=== PATIENT | male | born 1945 | race Caucasian/White ===

== ENCOUNTER 2022-03-15 09:08 | Day surgery (SDC) | payer MEDICARE, BC ==
[~2022-03-15 09:08] MED LIST: DEXAMETHASONE SOD PHOSPHATE 4 MG/ML 1 ML VIAL IV ONE; DEXAMETHASONE SOD PHOSPHATE 4 MG/ML 1 ML VIAL IV PRN; FAMOTIDINE 20 MG/2 ML VIAL IV PRN; LACTATED RINGERS 1,000 ML IV SCH; LIDOCAINE 1% (10MG/ML) FOR IV START INTRADERMA ONE; ONDANSETRON 4 MG/2 ML VIAL IVP ONE; ONDANSETRON 4 MG/2 ML VIAL IVP PRN; fentaNYL (PF) 50 MCG/ML 2 ML AMP IV PRN; metroNIDAZOLE-NS PMX 500 MG in SALINE 1 100ML.BAG IVPB PRN
[2022-03-15 09:39] VITALS: TEMP 97.8
[2022-03-15] MEDS ORDERED: fentaNYL (PF) 50 MCG/ML 2 ML AMP ONE (10:55)
[2022-03-15] MEDS ORDERED: MIDAZOLAM 2 MG/2 ML VIAL ONE (10:55)
[2022-03-15] MEDS ORDERED: KETAMINE 10 MG/ML 20 ML VIAL ONE (10:55)
[2022-03-15] MEDS ORDERED: diphenhydrAMINE 50 MG/ML 1 ML VIAL ONE (10:55)
[2022-03-15] MEDS ORDERED: PROPOFOL 10 MG/ML 20 ML VIAL IV ONE (10:55)
[2022-03-15] MEDS ORDERED: LIDOCAINE 2% INJ 20 MG/ML (2 ML VIAL) ONE (10:55)
[2022-03-15] MEDS ORDERED: BUPIVACAIN-EPI 0.25%-1:200,000 30 ML VIAL SQ ONE (11:56)
[2022-03-15] MEDS ORDERED: LIDOCAINE 1%-EPI 1:100,000 20 ML VIAL SQ ONE (11:56)
--- NOTE | 2022-03-15 12:33 | P.OP ---
Date of Procedure: 03/15/22 Preoperative Diagnosis: 6x 3cm right scalp basal cell carcinoma 4x 2cm left scalp lesion Postoperative Diagnosis: same Procedure(s) Performed: Excision of a 6 x 3 cm right scalp basal cell carcinoma with reconstruction utilizing a bilateral advancement flap closure with a secondary defect of 12 x 6 cm. Excision of a 4 x 2 cm left scalp lesion with reconstruction utilizing a bilateral advancement flap closure with a secondary defect of 8 x 4 cm Anesthesia: MAC Surgeon: Danie Juarez Estimated Blood Loss (ml): 5 Pathology: other (frozen section showed clear margins) Indications for Procedure: Patient had 2 lesions of the scalp morning on the right 1 on the left. 1 on the right came back as a basal cell carcinoma and one on the left there is suspicious. Surgical removal is recommended. All risks, benefits, and alternative therapies were discussed. Consent was obtained and all questions were answered Operative Findings: All margins are negative for tumor on pathology Description of Procedure: Patient was taken to the operative room to the supine position IV sedation was administered and the scalp was sterilely prepped and draped in usual fashion. Lesion on the right and lesion on the left were identified and marked measurements were 6 x 3 cm on the right and 4 x 2 cm on the left. The scalp was anesthetized with lidocaine and epinephrine and 10 minutes were allowed wait for full vasoconstrictive effects to take place at this time incisions were made in these 2 lesions were removed. On the right side we did extensive undermining but could not bring this together primarily therefore bilateral advancement flaps were developed with removal of burrows triangles we did extensive undermining in all directions and we rotated the medial and pedicle flaps into position to close the defect we closed the deep galea layer with 3-0 PDS the mid dermal layer with 4-0 Monocryl and the skin with a 4 and 50 rapid Vicryl in a running nonlocking fashion excellent approximation was obtained. The secondary defect measured 12 x 8 cm. The left scalp lesion also was unable to be closed primarily so we developed bilateral advancement flaps we removed carolynn's triangles did extensive undermining in all directions and we rotated the skin flaps into position to close the defect we closed the deep 3-0 PDS 4-0 Monocryl and the skin was closed with a 50 rapid Vicryl in a running nonlocking fashion excellent approximation was obtained the patient tolerated this well and follow- up will be in the office in one week the secondary defect was performed on the left lesion measured 8 x 4 cm.
[2022-03-15 12:39] VITALS: RESP 16
[2022-03-15 12:59] VITALS: BP 123/70; PULSE 65
== END 2022-03-15 13:22 | disposition home or self-care (01) ==
LOC: OR 09:08
PROVIDERS: ATTEND Otolaryngology
DX: C44.41 Basal cell carcinoma of skin of scalp and neck (principal); L57.0 Actinic keratosis; L81.4 Other melanin hyperpigmentation
CPT/HCPCS: 14301; 14302; 14021; 88305; 88331; J2250; J1200; J1100; J0690; J2405; J3010; J2704; J2001

== ENCOUNTER → 2022-10-09 | Outpatient (CLI) | payer MEDICARE, BC ==
--- NOTE | 2022-10-09 11:42 | CA ---
Stress Echo Report Aj Webster Age: 77 Gender: M : 1945 Exam Date: 10/09/2022 09:29 Exam Location: [facility] Ht (in): 76 Wt (lb): 235 Ordering Physician: Bk Noe DO Referring Physician: Ramón Sheppard MD ([id number]) Registered Nurse Bone Marrow Transplant: BATSHEVA, Technologist Procedure CPT: Indication: R06.9 OTHER FORMS OF DYSPNEA ICD-9 Codes: Rhythm: Patient History: Shortness of breath Cardiac Medications: Medications in past 24 hours: Contrast: Stress Results Protocol: Stewart Total dose(mL): Exercise Duration (min:sec): Max ST Depression (mm): Angina Score: Clay Score: METS: 8.5 Resting HR: 73 Resting BP: 141 / 86 Peak HR: 133 Peak BP: 203 / 76 Max Predicted HR: 144 92 % Max Predicted HR Target HR: 122 Double Product: 71986 Stress Summary: BP Response: Reason for Termination: Reached target heart rate or work-load Cardiac Symptoms: Dyspnea ECG Analysis Resting ECG: Normal sinus rhythm with left axis deviation Stress ECG: Patient exercised on Stewart protocol for 7 minutes achieving 8 mets 85% of predicted maximal heart rate without chest pain or diagnostic ST segment depression Arrhythmia: Echo Analysis Resting Echo: Normal left ventricular size wall motion systolic function Peak Echo Analysis: Normal hyperdynamic response of all the segments of myocardium noted MEASUREMENTS (Male/Female) Normal Values CONCLUSIONS Average exercise tolerance Negative stress test by EKG criteria Negative stress echo Dr. Napoleon Pinto MD (Electronically Signed) Final Date: 09 October 2022 11:41
== END | disposition home or self-care (01) ==
LOC: RADNMMAIN 09:01
PROVIDERS: ATTEND Family Medicine
DX: R06.09 Other forms of dyspnea (principal)
CPT/HCPCS: 93351

== ENCOUNTER → 2023-01-24 | Outpatient (CLI) | payer MEDICARE, BC ==
[2023-01-24 20:32] LABS: Blood Urea Nitrogen 14.3 mg/dL (9.0-27.0); Carbon Dioxide 25.9 mmol/L (21.6-31.8); Chloride 94 mmol/L (96-109); Potassium 5.6 mmol/L (3.5-5.5); Sodium 131 mmol/L (135-145)
[2023-01-25 00:58] LABS: HGB 14.9 d/dL (13.0-17.0); MCHC 33.9 d/dL (32.0-37.0); MCV 97.3 FL (80.0-97.0); NRBC Per 100 WBC 0 X 10*3/uL (0.00-0.01); Platelet Count 241 X 10*3/uL (140-440); RBC 4.52 X 10*6/uL (4.40-5.60); RDW 12.2 % (11.5-14.5); WBC 5.72 X 10*3/uL (4.50-10.00)
== END | disposition home or self-care (01) ==
LOC: LABPAT 11:53
PROVIDERS: ATTEND Internal Medicine Clinical Cardiac Electrophysiology
DX: Z01.812 Encounter for preprocedural laboratory examination (principal); I48.11 Longstanding persistent atrial fibrillation
CPT/HCPCS: 36415; 80051; 82565; 84520; 85027

== ENCOUNTER 2023-01-29 05:50 | Day surgery (SDC) | payer MEDICARE, BC ==
[2023-01-29] MEDS ORDERED: SODIUM CHLORIDE 0.9% 1,000 ML IV ONE (06:14)
[2023-01-29 07:01] LABS: African American GFR (CKD) >90 (>60 ml/min/1.73 sqM); Anion Gap 10 mmol/L; Blood Urea Nitrogen 15 mg/dL (9-20); Calcium 9.1 mg/dL (8.4-10.2); Carbon Dioxide 24 mmol/L (22-30); Chloride 96 mmol/L (98-107); Glucose 117 mg/dL (74-99); Non-African American GFR(CKD) 84 (>60 ml/min/1.73 sqM); Potassium 4.5 mmol/L (3.5-5.1); Sodium 130 mmol/L (137-145)
[2023-01-29] MEDS ORDERED: LIDOCAINE 1% INJ 10MG/ML (20 ML MDV) ONE (07:17)
[2023-01-29] MEDS ORDERED: ISOPROTERENOL 250 MCG/1.25 ML SYR IV ONE (07:30)
[2023-01-29] MEDS ORDERED: fentaNYL (PF) 50 MCG/ML 2 ML AMP ONE (07:30)
[2023-01-29] MEDS ORDERED: HYDROmorphone (PF) 1 MG/ML ONE (07:30)
[2023-01-29] MEDS ORDERED: MIDAZOLAM 2 MG/2 ML VIAL ONE (07:30)
[2023-01-29] MEDS ORDERED: HEPARIN SODIUM,PORCINE 10,000 UNIT/ML 1 ML VIAL ONE (07:30)
[2023-01-29] MEDS ORDERED: PHENYLEPHRINE 10 MG/ML 5 ML VIAL ONE (07:30)
[2023-01-29] MEDS ORDERED: SUCCINYLCHOLINE CHLORIDE 200 MG/10 ML VIAL IV ONE (07:30)
[2023-01-29] MEDS ORDERED: HEPARIN SODIUM,PORCINE 5,000 UNIT/ML 1 ML VIAL ONE (07:30)
[2023-01-29] MEDS ORDERED: PROPOFOL 10 MG/ML 20 ML VIAL IV ONE (07:30)
[2023-01-29] MEDS ORDERED: LIDOCAINE 1% INJ 10MG/ML (20 ML MDV) SQ ONE (08:12)
[2023-01-29] MEDS ORDERED: HEPARIN SOD,PORK IN 0.45% NACL 25,000 UNIT in 0.45% NACL 1 250ML.BAG IV ONE (08:15)
[2023-01-29] MEDS ORDERED: HEPARIN SODIUM (1,000 UNIT/ML) 1,000 UNIT in SODIUM CHLORIDE 0.9% 1,000 ML IRRIGATION ONE (09:45)
[2023-01-29] MEDS ORDERED: LACTATED RINGERS 1,000 ML IV ONE (10:00)
[2023-01-29] MEDS ORDERED: IOPAMIDOL-370 100ML BTL INJ ONE (10:12)
[2023-01-29] MEDS ORDERED: ACETAMINOPHEN TAB 325 MG TAB PO PRN (11:13)
[2023-01-29] MEDS ORDERED: ACETAMINOPHEN IV (For NPO) 1,000 MG in EMPTY BAG 1 BAG IVPB ONE (11:13)
--- NOTE | 2023-01-29 11:20 | P.HPCAR ---
History of Present Illness This is Dr. Sheppard dictating an H/P on this patient The patient was interviewed and examined IMPRESSION / ASSESSMENT: Recurrent palpitations, exertional Associated dizziness and shortness of breath Hypertension Dyslipidemia Documented paroxysmal atrial fibrillation Failed flecainide and metoprolol Documented SVT, failed metoprolol PLAN: Diagnostic EP study, ablation of arrhythmias HPI Patient continues to have occasional spells of palpitations Most of the symptoms are associated with palpitation shortness of breath and d izziness No recent loss of consciousness ROS: No fever chills or rigors, no cough, phlegm or expectoration, no nausea, vomiting or diarrhea, no hematuria, dysuria, no musculoskeletal complaints, no strokes or seizures, no skin lesions. EXAMINATION: Elevated blood pressure this morning 166 or 87 mmHg pulse rate in the 60s afebrile Breath sounds are clear no rhonchi no crackles Heart sounds are normal no murmurs Breath sounds are clear No lower extremity edema REVIEW OF LABS, ECG & MEDICAL DATA Sodium 130, potassium 4.5 BUN 15 creatinine 0.86 TSH 3.0 Physical Exam Vitals: Vital Signs Temp Pulse Resp BP Pulse Ox 01/29/23 06:18 98.2 F 65 16 166/87 98 Intake and Output 01/28/23 01/29/23 01/29/23 22:59 06:59 14:59 Intake Total 1488 Balance 1488 Intake: IV 1488 Other: Weight 104.7 kg Past Medical History Past Medical History: Cancer, Hyperlipidemia, Hypertension Additional Past Medical History / Comment(s): skin CA, "my heart just goes crazy then I have shortness of breath", see dr Sheppard's H & P History of Any Multi-Drug Resistant Organisms: None Reported Past Surgical History: Hernia Repair, Orthopedic Surgery Additional Past Surgical History / Comment(s): skin cancer surgeries, rt knee replacement, Past Anesthesia/Blood Transfusion Reactions: No Reported Reaction Smoking Status: Former smoker - Past Family History Father Family Medical History: Cancer Physical Examination Vital Signs Temp Pulse Resp BP Pulse Ox 01/29/23 06:18 98.2 F 65 16 166/87 98 Intake and Output 01/28/23 01/29/23 01/29/23 22:59 06:59 14:59 Intake Total 1488 Balance 1488 Intake: IV 1488 Other: Weight 104.7 kg Results 01/29/23 06:30 Comprehensive Metabolic Panel 01/29/23 Range/Units 06:30 Sodium 130 L (137-145) mmol/L Potassium 4.5 (3.5-5.1) mmol/L Chloride 96 L (98-107) mmol/L Carbon Dioxide 24 (22-30) mmol/L BUN 15 (9-20) mg/dL Creatinine 0.86 (0.66-1.25) mg/dL Glucose 117 H (74-99) mg/dL Calcium 9.1 (8.4-10.2) mg/dL Current Medications Generic Name Dose Route Start Last Admin Trade Name Freq PRN Reason Stop Dose Admin Acetaminophen 650 mg 01/29/23 11:13 Acetaminophen Tab 325 Mg Tab PO Q6HR PRN Mild Pain (Scale 1 to 3) Apixaban 5 mg 01/29/23 21:00 Apixaban 5 Mg Tab PO BID CALEB Protocol Flecainide Acetate 50 mg 01/29/23 21:00 Flecainide 50 Mg Tab PO Q12HR CALEB Sodium Chloride 1,000 mls @ 50 mls/hr 01/29/23 05:59 Saline 0.9% IV 02/28/23 06:00 .Q20H CALEB Acetaminophen 1,000 mg/ IV 100 mls @ 400 mls/hr 01/29/23 11:13 Solution IVPB 01/29/23 11:27 ONCE ONE Lisinopril 10 mg 01/29/23 21:00 Lisinopril 10 Mg Tab PO BID CALEB Metoprolol Succinate 12.5 mg 01/30/23 09:00 Metoprolol Succinate (Er) 25 Mg Tab.Er.24h PO DAILY [facility] Non-Formulary Medication 40 mg 01/29/23 21:00 Simvastatin PO HS CALEB Sodium Chloride 12 ml 01/29/23 11:13 Sodium Chloride 0.9% Flush 10 Ml Syringe IV Q12HR PRN Line Flush Intake and Output 01/28/23 01/29/23 01/29/23 22:59 06:59 14:59 Intake Total 1488 Balance 1488 Intake: IV 1488 Other: Weight 104.7 kg 01/29/23 06:30
--- NOTE | 2023-01-29 11:30 | P.EPPROC ---
- EP Procedure Note Electrophysiology Procedure Note: PROCEDURE A. fib ablation with PVI SVT ablation/AVNRT, very easily inducible, status post successful ablation DIAGNOSIS Atrial fibrillation, symptomatic, refractory to therapy Recurrent SVT, failed drug therapy RESULT No left atrial appendage mass seen on intracardiac echo Thickened pericardium with exudative material in the base of the left ventricle and posterior to the left atrium Large right-sided pulmonary veins, complex branching anatomy Large, common left-sided pulmonary veins Successful A. 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 Patient brought to the EP lab. General anesthesia given. Heparin administered. A city maintained above 300 seconds Both groins prepped and draped per protocol and venous sheaths placed. Esophagus intubated, circa catheter for temperature monitoring an endoscope for possible esophageal deflection. Phrenic nerve monitoring performed. Esophageal temperature monitoring performed. Esophageal deflection performed if circa catheter overlapping with the balloon or circa temperature less than 27.5C Intracardiac echocardiography performed. Pericardium evaluated. Left atrial appendage evaluated. Left atrium evaluated along with pulmonary veins Transseptal catheterization performed under fluoroscopic guidance and intracardiac echo guidance Cryoablation sheath exchanged, balloon catheter along with achieve catheter placed in the left atrium. Pulmonary veins isolated in the following sequence: Left superior pulmonary vein followed by left inferior pulmonary vein, followed by right inferior pulmonary vein and lastly right superior pulmonary vein. Phrenic nerve stimulation along with capture thresholds within the SVC and right superior pulmonary vein to identify the phrenic nerve proximity to the cryo- balloon. Pulmonary veins isolated and confirmed with entrance and exit block. Phrenic nerve integrity confirmed at the end of the procedure Following this Isuprel was started and atrial pacing was performed from the high right atrium and coronary sinus With straight pacing and with burst stimulation even radha reentrant tachycardia was easily inducible Short septal times, VAV response RV pacing, long PPI During his cloud mapping atrial fibrillation was induced. This was sustained Electrical cardioversion was performed to sinus rhythm to allow for mapping of the slow pathway and perform ablation In sinus rhythm the slow pathway was mapped. Successful ablation was performed outside the floor and the roof of the coronary sinus Junctional rhythm obtained Slow pathway eliminated No inducible SVT thereafter on her off Isuprel Diagnostic catheters for the high right atrium, His bundle, coronary sinus placed. LA and RA pressures recorded RA pressure: LA pressure: Diagnostic EP study with coronary sinus pacing and recording Baseline measurements: Sinus cycle length 956 ms, VT interval 166, QRS 127 and QT 450 AH 103 ms and HV interval 33 ms Sinus node recovery times were 1228, 1364 and 1374 ms. In the baseline state during intubation AV node Wenckebach block 530 ms Following AVNRT ablation, AV node Wenckebach block on Isuprel 400 ms VA Wenckebach block 350 ms Venous sheaths were removed and hemostasis assured with a closure device. Patient extubated and transferred to recovery Increase procedural time Intracardiac echo revealed a very large left atrium Right-sided veins were large with complex branching anatomy Both had a large vestibule which accommodated the balloon but resulted in very cold temperatures Therefore multiple short cryo-lesions were administered in improving fashion at and antral level to achieve complete antral level isolation of the right inferior and right superior pulmonary veins The left-sided veins were common with 2 large veins/branches Once again the vestibule was large and multiple short lesions were delivered around the antrum, in improving fashion to achieve complete isolation at her antral level This took extra time during the procedure PROCEDURES PERFORMED Diagnostic EP study CS pacing and recording Left and right transseptal catheterization Catheter the mapping of the tachycardia Intracardiac echocardiography Pulmonary vein isolation with transseptal and comprehensive EPS, [id number] Extended procedure duration Drug infusion, +[id number] Ablation of discrete arrhythmia focus, +[id number] Electrical cardioversion with a synchronized shock across the chest [id number]
[2023-01-29] MEDS: SODIUM CHLORIDE 0.9% 1,000 ML IV SCH (14:28)
[2023-01-29] MEDS ORDERED: ATORVASTATIN 20 MG TAB PO SCH (21:00)
[2023-01-29] MEDS: APIXABAN 5 MG TAB PO SCH (21:11)
[2023-01-29] MEDS: lisinopriL 10 MG TAB PO SCH (21:11)
[2023-01-29] MEDS: FLECAINIDE 50 MG TAB PO SCH (21:11)
[2023-01-30] MEDS: SODIUM CHLORIDE 0.9% 1,000 ML IV SCH (03:56)
--- NOTE | 2023-01-30 07:41 | P.DS ---
Providers Attending physician: Ramón Sheppard Primary care physician: [facility] Course: Patient is doing well. 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 Sheppard in about 7-10 days Patient Condition at Discharge: Good Plan - Discharge Summary Discharge Rx Participant: No New Discharge Prescriptions: Continue Simvastatin [Zocor] 40 mg PO HS Celecoxib [CeleBREX] 1 cap PO ONCE PRN PRN Reason: arthritic pain Zinc Gluconate [Zinc] 50 mg PO DAILY Cholecalciferol (Vitamin D3) [Vitamin D3 (3000 Iu)] 1 tab PO DAILY Amitriptyline HCl 25 mg PO HS Metoprolol Succinate (ER) [Toprol XL] 12.5 mg PO DAILY lisinopriL [Prinivil] 10 mg PO BID Hyoscyamine Sulfate [Levsin] 0.125 mg PO BID Ascorbic Acid [Vitamin C] 1,000 mg PO DAILY Flecainide [Tambocor] 75 mg PO Q12HR Apixaban [Eliquis] 5 mg PO BID Discharge Medication List Celecoxib [CeleBREX] 1 cap PO ONCE PRN 12/03/13 [History] Simvastatin [Zocor] 40 mg PO HS 12/03/13 [History] Ascorbic Acid [Vitamin C] 1,000 mg PO DAILY 03/12/22 [History] Cholecalciferol (Vitamin D3) [Vitamin D3 (3000 Iu)] 1 tab PO DAILY 03/12/22 [History] Hyoscyamine Sulfate [Levsin] 0.125 mg PO BID 03/12/22 [History] Zinc Gluconate [Zinc] 50 mg PO DAILY 03/12/22 [History] lisinopriL [Prinivil] 10 mg PO BID 03/12/22 [History] Amitriptyline HCl 25 mg PO HS 01/28/23 [History] Apixaban [Eliquis] 5 mg PO BID 01/28/23 [History] Flecainide [Tambocor] 75 mg PO Q12HR 01/28/23 [History] Metoprolol Succinate (ER) [Toprol XL] 12.5 mg PO DAILY 01/28/23 [History] Follow up Appointment(s)/Referral(s): Ramón Sheppard MD [STAFF PHYSICIAN] - 1 Week Activity/Diet/Wound Care/Special Instructions: Post EP study - Ablation instructions 1. Keep access sites dry for 2 days. 2. No heavy lifting or straining for 2 days. 3. Avoid bending the hips repeatedly for 2 days. 4. You may go up and down stairs slowly Call if the following is noted 1. Bleeding, increasing swelling or pain at the access sites. 2. Increasing chest discomfort, especially upon taking a deep breath. 3. Increasing shortness of breath, at rest or with exertion. 4. Undue cough / phlegm 5. Difficulty or pain while swallowing. 6. Pain or change in color in the extremities. 7. Fever, chills, rigors. 8. Increasing headache or neurologic symptoms. 9. Dizziness, fainting, palpitations Continue ELIQUIS unchanged Reduce the dose of flecainide to 50 mg twice daily Continue all other cardiac medications Discharge Disposition: HOME SELF-CARE
[2023-01-30] MEDS ORDERED: METOPROLOL SUCCINATE (ER) 25 MG TAB.ER.24H PO SCH (09:00)
[2023-01-30 09:16] VITALS: BP 125/75; PULSE 73; RESP 17; TEMP 98.6
[2023-01-30] MEDS: FLECAINIDE 50 MG TAB PO SCH (10:08)
[2023-01-30] MEDS: lisinopriL 10 MG TAB PO SCH (10:08)
[2023-01-30] MEDS: APIXABAN 5 MG TAB PO SCH (10:08)
== END 2023-01-30 12:07 | disposition home or self-care (01) ==
LOC: CATHEP 05:50 → 6NMEDSUR 10:50 → CATHEP 01-30 12:07
PROVIDERS: ATTEND Internal Medicine Clinical Cardiac Electrophysiology
DX: I48.0 Paroxysmal atrial fibrillation (principal); I47.19 Other supraventricular tachycardia; E78.5 Hyperlipidemia, unspecified; I11.9 Hypertensive heart disease without heart failure; Z79.01 Long term (current) use of anticoagulants; Z79.899 Other long term (current) drug therapy; Z87.891 Personal history of nicotine dependence; Z98.890 Other specified postprocedural states
CPT/HCPCS: 92960; 93623; 93655; 93656; 86900; 86901; 80048; 84443; 86850; C1894 ×2; C1769 ×3; C1760; C1730 ×3; C1759; C1893; C1733; C1766; C1732; J2250; J0330; J1644 ×4; J2001; J3010; J1170; J2704; Q9967; J2371